=== PATIENT | female | born 1985 | race Caucasian/White ===

== ENCOUNTER 2020-07-30 10:02 | Emergency (ER) | payer OTHER ==
[2020-07-30 10:20] LABS: BASOPHIL 0.4 % (0-2); EOSINOPHIL 0 % (0-5); HCT 40.3 % (37.0-47.0); HGB 14.4 g/dl (12.5-16.0); LYMPHOCYTE 9.3 % (15-48); MCHC 35.7 g/dL (32.0-36.0); MCV 92.4 fL (78.0-100.0); MONOCYTE 6.3 % (0-12); MPV 11.1 fL (6.0-9.5); NEUTROPHIL 83.6 % (41-80); NRBC 0; PLT 244 K/uL (150-400); RBC 4.36 M/uL (4.20-5.40); RDW 12.4 % (11.5-14.0); WBC 11.3 K/uL (4.0-10.5)
[2020-07-30 10:38] LABS: ALBUMIN 4.4 g/dL (3.4-5.0); ALKALINE PHOSHATASE 67 U/L (46-116); ALT 24 U/L (14-59); AST 23 U/L (15-37); BILIRUBIN - TOTAL 1.1 mg/dL (0.2-1.0); BUN 14 mg/dL (7-18); BUN/CREAT RATIO (CALC) 19.7 RATIO; CHLORIDE 105 mmol/L (98-107); CO2 (BICARBONATE) 17 mmol/L (21-32); CREATININE 0.71 mg/dL (0.51-0.95); GLOBULIN (CALCULATION) 3.4 g/dL; GLUCOSE 149 mg/dL (74-106); LIPASE 71 U/L (73-393); POTASSIUM 3.1 mmol/L (3.5-5.1); TOTAL PROTEIN 7.8 g/dL (6.4-8.2)
[2020-07-30 10:54] LABS: BILIRUBIN NEGATIVE (NEGATIVE); BLOOD NEGATIVE Ery/uL (NEGATIVE); CLARITY CLEAR (CLEAR); COLOR YELLOW (YELLOW); GLUCOSE (U) TRACE mg/dL (NORMAL); LEUKOCYTES NEGATIVE Leu/uL (NEGATIVE); NITRITE NEGATIVE (NEGATIVE); PROTEIN 1+ mg/dL (NEGATIVE); UROBILINOGEN 0.2 mg/dL (0.2-1.0); pH 8.5 (5.0-9.0)
[2020-07-30 10:57] LABS: AMPHETAMINES NEGATIVE (NEGATIVE); BARBITURATES NEGATIVE (NEGATIVE); ECSTASY (MDMA) NEGATIVE (NEGATIVE); MARIJUANA (THC) POSITIVE (NEGATIVE); METHADONE NEGATIVE (NEGATIVE); OPIATES NEGATIVE (NEGATIVE); OXYCODONE NEGATIVE (NEGATIVE)
[2020-07-30 11:05] LABS: BACTERIA TRACE; URINARY WBC RARE
[2020-07-30] MEDS ORDERED: ZOFRAN4 M1 PO (17:07)
[2020-07-30] MEDS ORDERED: PEPCID AC20 MG PO (17:07)
== END 2020-07-30 18:09 | disposition home or self-care (01) ==
LOC: FER 10:02
PROVIDERS: Emergency Medicine
DX: S20.214A Contusion of middle front wall of thorax, initial encounter (principal); S10.93XA Contusion of unspecified part of neck, initial encounter; S05.11XA Contusion of eyeball and orbital tissues, right eye, initial encounter; R10.13 Epigastric pain; E87.6 Hypokalemia; R11.2 Nausea with vomiting, unspecified; F17.200 Nicotine dependence, unspecified, uncomplicated; Z20.822 Contact with and (suspected) exposure to COVID-19; X58.XXXA Exposure to other specified factors, initial encounter
CPT/HCPCS: 36415; 70450; 71045; 71275; 72125; 80053; 80305; 81001; 83690; 84484; 85025; 93005; G0480; J2270; J2405; J7030; Q9967; U0002

== ENCOUNTER 2020-09-14 01:09 | Emergency (ER) | payer OTHER ==
[~2020-09-14 01:09] MED LIST: PEPCID AC20 MG PO; ZOFRAN4 M1 PO
--- NOTE | 2020-09-16 06:16 | NUR ---
[facility] requested records on this pt that was now in their ED, release of information signed by the patient was faxed to this facility. Radiology reports were printed and faxed. Copy of release of information turned in to Medical Records to be added to the patient chart.
== END 2020-09-14 02:55 ==
LOC: FER 01:09
DX: S00.83XA Contusion of other part of head, initial encounter (principal); S80.02XA Contusion of left knee, initial encounter; S40.011A Contusion of right shoulder, initial encounter; F17.200 Nicotine dependence, unspecified, uncomplicated; V49.9XXA Car occupant (driver) (passenger) injured in unspecified traffic accident, initial encounter; Y93.89 Activity, other specified; Y92.89 Other specified places as the place of occurrence of the external cause
CPT/HCPCS: 70486; 73030